=== PATIENT | female | born 1985 | race Caucasian/White ===

== ENCOUNTER 2022-05-29 22:04 | Emergency (ER) | payer OTHER, SELFPAY ==
[2022-05-29 22:04] VITALS: BP 146/73; PULSE 88; RESP 16; TEMP 36.8; O2SAT 98; BMI 24.1
[2022-05-29 22:35] VITALS: O2SAT 97
--- NOTE | 2022-05-29 22:35 | EKG12_ITS ---
Test Reason : CP Blood Pressure : / mmHG Vent. Rate : 083 BPM Atrial Rate : 083 BPM P-R Int : 170 ms QRS Dur : 094 ms QT Int : 382 ms P-R-T Axes : 062 074 042 degrees QTc Int : 448 ms Normal sinus rhythm Normal ECG Confirmed by HELADIO BARROW, KATHERINE ([id number]), restaurant expeditor GLORIA DODGE ([id number]) on 05/31/2022 9:33:10 AM Referred By: PL Confirmed By:KATHERINE LEIJA MD
--- NOTE | 2022-05-29 22:50 | RAD_ITS ---
STUDY: X-RAY CHEST REASON FOR EXAM: Female, 36 years old. chest pain TECHNIQUE: AP portable. 10:49 PM. COMPARISON: None. FINDINGS: LUNGS: No consolidation. No pneumothorax. MEDIASTINUM: Unremarkable. CARDIAC SILHOUETTE: Not enlarged. BONES AND SOFT TISSUES: No acute abnormalities. RAD/Chest 1 View (Portable) IMPRESSION: No evidence of active intrathoracic disease. Electronically Signed: iLma Cooley MD at 23:06 EDT ,
[2022-05-29 22:55] LABS: Absolute Neutrophil Count 5.6 X10^3/uL (2.0-7.7); Basophil# 0.03 X10^3/uL; Basophil% 0.3 % (0-1); Eosinophil# 0.09 X10^3/uL; Hematocrit 40.6 % (37-47); Hemoglobin 13.6 g/dL (12.0-15.0); Lymphocyte % 29.3 % (19-41); Mean Corp Hgb Conc 33.5 g/dL (32-36); Mean Corpuscular Volume 89.4 fL (81-99); Mean Platelet Vol. 9.1 fl (6.2-12.0); Monocyte# 0.53 X10^3/uL; NRBC Flagged by Analyzer 0 % (0-5); Neutrophil # 5.61 X10^3/uL (2.7-7.7); Neutrophil % 63.3 % (47-70); Platelet Count 311 K/mm3 (150-450); RBC Distribution Width CV 12.1 % (11.6-14.6); RBC Distribution Width SD 39.6 fl (35.1-43.9); Red Blood Count 4.54 M/mm3 (4.2-5.4); White Blood Count 8.9 K/mm3 (4.4-11.0)
[2022-05-29 23:00] VITALS: BP 114/72; PULSE 76; RESP 18; O2SAT 97
[2022-05-29 23:06] LABS: D-Dimer Quantitative (DVT/PE) 0.39 FEU/ug/m (0.27-0.49)
[2022-05-29 23:33] LABS: Anion Gap 7 (5-15); BUN 14 mg/dL (7-18); BUN/Creat Ratio 15.7 RATIO (10-20); Calcium,Total 8.7 mg/dL (8.5-10.1); Chloride 107 mmol/L (98-107); Creatinine, Serum 0.89 mg/dL (0.55-1.02); EST Glomerular Filtration Rate 75 mL/min (>60); Est Glom Filt Rate - Afr Amer 91 mL/min (>60); Estimated Creatinine Clearance 77.12 ml/min; Glucose 115 mg/dL (74-106); Potassium 3.2 mmol/L (3.5-5.1); Sodium Level 143 mmol/L (136-145); Troponin-I HS < 3 pg/mL (3.0-54.0)
--- NOTE | 2022-05-29 23:43 | ED.VIS.CHEST ---
HPI History of Present Illness Chief Complaint: Chest Pain Informant: patient Onset/Context/Timing Onset: Days Activity at onset: gradual Timing: Intermittent Quality: Positive for Aching Location: Right Parasternal and Left Parasternal Current Severity: Mild Maximum Severity: Mild Worsened By: Nothing Relieved By: Nothing Associated Symptoms: Positive for Cough; Negative for Nausea, Vomiting, Diaphoresis, Dyspnea, Fever, Lightheadedness, Acid Reflux or Palpitations Narrative Narrative: 36-year-old female no seen past medical history. Recently had COVID about a week and a half ago. She has had intermittent parasternal chest pressure and tightness since this past Tuesday. About a week ago. Not associated with exertion. No dyspnea. No hemoptysis. Denies any fever or chills now. Has never had a DVT or PE. No recent travel, surgery or immobilization. No leg pain or swelling. No exertional chest pain or dyspnea. Prior Similar Symptoms: No Recent Illness/Hospitalization: No CVD Risk Factors: Negative for Hypertension, Diabetes, Hypercholesterolemia or Smoking PE Risk Factors: Negative for Recent Travel/Surgery, Recent Immobilization, Prior DVT or PE, Cancer or OCP + Smoking + >/=35 TAD Risk Factors: Negative for Marfan's Syndrome [facility] Medical History Anxiety COVID Home Medications vits,calcium no.78-iron fumarate-folic acid 29 mg-1 mg tablet (Prenatabs FA) 1 tab PO DAILY 09/07/17 [History Last Taken 09/06/17 20:00 1 tab] acetaminophen 500 mg tablet 1,000 mg PO Q8H PRN PRN MILD PAIN (1-10)/Temp>99.6F 09/09/17 [Rx Last Taken Unknown] sennosides 8.6 mg-docusate sodium 50 mg tablet (Stool Softener-Stimulant Laxative) 1 - 2 tab PO DAILY PRN PRN Constipation 09/09/17 [Rx Last Taken Unknown] Allergy/AdvReac Type Severity Reaction Status Date / Time No Known Allergies Allergy Verified 05/29/22 22:07 Social History Smoking Status: Former smoker ROS ROS ED ROS Narrative Cough. Atypical nonexertional chest pain. Review of Systems ROS Unobtainable: Denies due to encephalopathy Constitutional Constitutional ED: Denies chills or fever(s) Eyes Eyes: Reports none ENT ENT ED: Denies ear pain, rhinorrhea or sore throat Cardiovascular Cardiovascular: Reports as per HPI and chest pain; Denies palpitations or racing heartbeat Respiratory/Chest Respiratory/Chest: Reports cough; Denies dyspnea Gastrointestinal Gastrointestinal: Denies abdominal pain Genitourinary Genitourinary ED: Denies dysuria or hematuria Musculoskeletal Musculoskeletal: Denies arthralgias Integumentary Denies abscess Neurologic Neurologic: Denies headache(s) Psychiatric Psychiatric: Reports anxiety Endocrine Endocrinology: Denies cold intolerance Hematologic/Lymphatic Hematologic/Lymphatic: Denies easy bleeding Allergic/Immunologic Allergic/Immunologic ED: Denies mouth swelling or tongue swelling EXAM Physical Exam Narrative Exam Narrative: Well-appearing 36-year-old female. Vital signs are stable afebrile. Pulse ox 90% on room air no hypoxia. H EENT exam unremarkable. Neck nontender no lymphadenopathy. Lungs clear to auscultation bilaterally. Heart regular rate and rhythm rate about 85 no murmur. Chest wall nontender. Abdomen soft nontender. Moving all 4 extremities. Neurovascularly intact. Equal symmetrical radial pulses. Calves are nontender without edema or cords. Normal motor strength. Neurologic exam normal. Const Vital Signs: 05/29/22 22:04 05/29/22 23:00 05/29/22 22:35 Temperature 98.2 F Temperature Source Temporal Pulse Rate 88 76 Respiratory Rate 16 18 Blood Pressure 146/73 H 114/72 Blood Pressure Mean 97 86 Pulse Ox 98 97 97 Oxygen Delivery Method Room Air Room Air Room Air Positive well nourished, well developed and obese; Negative for cachectic, contractures or unkempt General Appearance ED: well developed and NAD; Negative for unkempt, cachectic, contractures or pallor Nutritional Appearance: obese; Negative for cachectic HEENT Reports moist mucous membranes normocephalic and atraumatic; Negative for trauma or tenderness Eyes PERRL and EOMs intact bilaterally General Eye ED: Negative for pale conjunctiva or scleral icterus Neck no lymphadenopathy, supple and no JVD General: Negative for tenderness Chest Wall inspection of chest normal and palpation of chest normal Chest: Negative for tenderness Resp normal respiratory effort and clear to auscultation bilaterally Effort and Inspection: Negative for respiratory distress Auscultation: Negative for rales, rhonchi or wheezes Cardio regular rate, regular rhythm, S1 normal heart sound, S2 normal heart sound and no murmurs Rate: Negative for bradycardia or tachycardic Rhythm: Negative for abnormal rhythm Peripheral Pulses: pulses 2+ throughout GI normal to inspection, nondistended, normoactive bowel sounds, soft to palpation, non-tender, non-distended and no masses Auscultation: Negative for hyperactive bowel sounds Back/Spine no CVA tenderness and no thoracic nor lumbar tenderness General Back: Negative for CVA tenderness Cervical Spine: Negative for cervical spine tenderness Extremity normal to inspection General Extremety ED: Negative for edema or pulses abnormal General Extremity: Negative for edema or pulses abnormal Neuro oriented x3 and CN's II-XII intact bilaterally Sensorium / Orientation: awake, alert, oriented to person, oriented to place and oriented to time; Negative for confused, lethargic or stuporous Motor Exam: strength 5/5 throughout Psych mental status grossly normal Appearance: Negative for unkempt Attitude: No agitated Mood & Affect: Negative for depressed, anxious or tearful Skin no rashes or lesions noted and no wounds General Skin Exam: Negative for jaundice or pallor Rashes: No rashes noted Trauma: Negative for abrasion or laceration Heart Score History: Slightly/Non-Suspicious ECG: Normal Age: </= 45 years Risk Factors: No Risk Factors Troponin: </= Normal Limit Score: 0 MDM MDM MDM Narrative Medical decision making narrative: 36-year-old with atypical nonreproducible chest pain. Recent COVID. Clinically does not sound like a DVT or PE. She undergo cardiac work-up with a D-dimer. Repeat exam the patient is doing well at 11:49 PM patient doing well. We discussed other differential diagnoses such as reflux or anxiety. She will be discharged home. Motrin for pain. She has Ativan for anxiety. Follow-up with her doctor if not improving. Lab Data Attestation: I reviewed the patient's lab results. Lab results narrative: CBC normal. White count 8.9. H&H of 13.6 and 40. Electrolytes show potassium 3.2. Gap is 7. Normal BUN and creatinine. Normal troponin less than 3. She does not need a second troponin she has had intermittent discomfort for a week. Her D-dimer is 0.39 which is also normal. Chest x-ray is normal. Labs: Laboratory Results - last 24 hr 05/29/22 05/29/22 05/29/22 22:45 22:45 22:45 WBC 8.9 RBC 4.54 Hgb 13.6 Hct 40.6 MCV 89.4 MCH 30.0 MCHC 33.5 RDW Std Deviation 39.6 RDW Coeff of Joie 12.1 Plt Count 311 MPV 9.1 Immature Gran % (Auto) 0.100 Neut % (Auto) 63.3 Lymph % (Auto) 29.3 [place] % (Auto) 6.0 Eos % (Auto) 1.0 Baso % (Auto) 0.3 Absolute Neuts (auto) 5.6 Absolute Lymphs (auto) 2.60 Nucleated RBC % 0 D-Dimer Quant (PE/DVT) 0.39 Sodium 143 Potassium 3.2 L Chloride 107 Carbon Dioxide 29.0 Anion Gap 7 BUN 14 Creatinine 0.89 Estim Creat Clear Calc 77.12 Est GFR (MDRD) Af Amer 91 Est GFR (MDRD) Non-Af 75 BUN/Creatinine Ratio 15.7 Glucose 115 H Calcium 8.7 Troponin I High Sens < 3 L Radiography Chest X-Ray - ED: 1 View, Read by ED Physician, Read by Radiologist, Heart, Lungs, Mediastinum, Bony Structures and No Acute Disease Diagnostic Testing: Clinical Impression(s) from Imaging Studies Chest X-Ray 05/29/22 22:50 IMPRESSION: No evidence of active intrathoracic disease. Electronically Signed: Lima Cooley MD at 23:06 EDT Reading Location ID and State: [address] [place] [address] Tel , Service support , Chest x-ray, portable, single view interpreted by myself and radiologist shows no acute abnormality. Normal cardiac silhouette. No infiltrates. Normal mediastinum. Rhythm Strip Rhythm Strip: Sinus Rhythm Rate: 83 Ectopy: None EKG Initial EKG: Attestation: I personally reviewed and interpreted this EKG as follows: Interpretation: Sinus Rhythm and No Acute Injury Pattern Comments: Normal sinus rhythm rate of 83 no acute signs of VA or ischemia. No S1 Q3 T3. Prior EKG tracings: not available for review Discharge Plan Triage Chief Complaint: Chest Pain ED Provider: Leonid Barboza Dx/Rx/DC Orders Clinical Impression: Chest pain, Hx of anxiety disorder, History of COVID-19 Instructions: ED Chest Pain, Noncardiac Prescriptions: No Action vit,[id number] [Prenatabs FA] 1 TABLET tablet 1 tab PO DAILY sennosides-docusate sodium [Stool Softener-Stimulant Laxat] 1 TABLET tablet 1 - 2 tab PO DAILY PRN PRN (Reason: Constipation ) 0RF acetaminophen 500 MG tablet 1,000 mg PO Q8H PRN PRN (Reason: MILD PAIN (-10/29)/Temp>99.6F) 0RF Primary Care Provider: Stephan Hill Referrals: Stephan Hill, [Primary Care Provider] - 1 Week if not improving Activity Restrictions/Additional Instructions: Motrin or Advil for chest pain. This should improve if its inflammation. Tums, Pepcid or Protonix if not improving because this could be secondary to reflux. Follow-up with your doctor if not improving. All your labs, chest x-ray and EKG were normal tonight. Disposition Disposition: Home, Self Care
[2022-05-30] VITALS: BP 113/79; PULSE 74; RESP 17; O2SAT 98
== END 2022-05-30 00:06 | disposition home or self-care (01) ==
PROVIDERS: Emergency Provider Emergency Medicine; PCP Student in an Organized Health Care Education/Training Program; Visit Provider Emergency Medicine
DX: R07.9 Chest pain, unspecified (principal); F41.9 Anxiety disorder, unspecified; E66.9 Obesity, unspecified; Z87.891 Personal history of nicotine dependence; Z86.16 Personal history of COVID-19; Z79.899 Other long term (current) drug therapy
CPT/HCPCS: 71045; 80048; 84484; 85025; 85379; 93005; 99284; A4216

== ENCOUNTER 2022-08-10 08:55 | Day surgery (SDC) | payer OTHER, SELFPAY ==
[2022-08-10] VITALS (9 sets, daily range): BP systolic 76–94; BP diastolic 45–62; PULSE 57–79; RESP 14–16; TEMP 36.3–36.5; O2SAT 94–100; BMI 25.3
[2022-08-10 09:29] LABS: Internal QC Validated? YES +Cl - CLEAR BKGD; Pregnancy, Urine Negative Negative
[2022-08-10] MEDS: Lactated Ringers 1,000 ML 15 ML IV (09:42)
--- NOTE | 2022-08-10 10:00 | EGD_PTH ---
PATIENT: RENEA POLLOCK LOC: EN U#:[id number] AGE/SX: 36/F ROOM: RE08/10/[address]: Dr. Chivo Gudino MD : 1985 BED: DIS: 08/10/2022 SPEC #: [id number] RECD: 08/10/22 11:12 STATUS: ANDREA RESagrario #: [id number] GIA: 08/10/22 10:[address]: Chivo Gudino DEPT: SURGICAL PATHOLOGY RECD BY: Reyna Reina ENTERED: 08/10/22 13:01 SP TYPE: EGD BIOPSY OT DR: Dr. Stephan Hill DO Tissues: A - Gastric mucous membrane B - Esophagus, NOS Procedures: Special Stain Group II Surgery Specimen Level IV Alcian Blue/PAS (control) HEADER OPERATION: EGD with biopsy (MAC) PRE-OP DIAGNOSIS: Epigastric pain TISSUE SUBMITTED: A ? Antrum biopsy for H. pylori and path, B ? Biopsy gastroesophageal junction MICROSCOPIC DIAGNOSIS A. Gastric antrum, biopsy: Chronic gastritis. See comment. B. Gastroesophageal junction, biopsy: Gastroesophageal junctional mucosa with chronic inflammation. No evidence of goblet cell metaplasia. See comment. AM:kristel 08/11/2022 COMMENT A. The results of immunohistochemistry for Helicobacter pylori will be reported separately ([id number]). B. Alcian blue/PAS stain with matched control supports the above diagnosis. MICROSCOPIC DESCRIPTION Slides are reviewed. GROSS DESCRIPTION A - Received in fixative is one container labeled with the patient's name and designated antrum biopsy. The specimen consists of multiple irregular fragments of light dunham soft tissue that in aggregate measure 0.8 x 0.3 x 0.1 cm. The specimen is totally submitted in one cassette. B - Received in fixative is one container labeled with the patient's name and designated GE junction biopsy. The specimen consists of multiple irregular fragments of light dnuham soft tissue that in aggregate measure 0.6 x 0.3 x 0.1 cm. The specimen is totally submitted in one cassette. / SJ:kristel 08/10/2022 TC:3 CPT: 83223 x2
--- NOTE | 2022-08-10 10:00 | IMM_PTH ---
PATIENT: RENEA POLLOCK LOC: EN U#:[id number] AGE/SX: 36/F ROOM: RE08/10/[address]: Dr. Chivo Gudino MD : 1985 BED: DIS: 08/10/2022 SPEC #: [id number] RECD: 08/10/22 13:58 STATUS: [facility] REQ #: [id number] GIA: 08/10/22 10:[address]: Chivo Gudino DEPT: IMMUNOHISTOCHEMISTRY RECD BY: Sharee Hurtado ENTERED: 08/10/22 13:58 SP TYPE: IMMUNO OTHR DR: Dr. Stephan Hill, DO Tissues: A - Stomach, NOS Procedures: H Pylori (initial) PHYSICIAN & INSTITUTION [place] [id number] SPECIMEN INFORMATION: Tissue Source: A ? Antrum biopsy Clinical Info: Epigastric pain Specimen Number: [id number] CPT code: 52184 METHODOLOGY: Deparaffinized sections of prefer/formalin-fixed tissue or PAP/DQ stained slides are incubated with monoclonal/polyclonal antibodies/oligonucleotide probes. Localization is made via biotin free immunoperoxidase method. Appropriate controls are performed and reacted as expected. Results on target cell population are indicated in the following table: RESULTS: ANTIBODY / CLONE RESULT Block A H Pylori (polyclonal) negative These tests were developed and their performance characteristics determined by [facility]. They may not have been cleared or approved by the U.S. Food and Drug Administration. The FDA has determined that such clearance or approval is not necessary. The above immunohistochemical/dualISH markers are ordered and reviewed by the Pathologist. INTERPRETATION: A. Antrum, biopsy: Negative for Helicobacter pylori organisms. AM:kristel 08/11/2022
--- NOTE | 2022-08-10 10:01 | PCM.HP.BLA ---
History and Physical Date of Admission: 08/10/22 Intake Vital Signs ? 05/29/2222:04 07/26/2214:08 Height 5 ft 5 in 5 ft 5 in Weight: ? 152 lb 2 oz BMI ? 25.3 BP ? 106/71 Blood Pressure Location ? Rt brachial Position ? Sitting Respiration ? 20 H Pulse ? 77 Pulse Source ? NIBP Temp ? 97.8 F Temp Source ? Temporal Pulse Oximetry (%) ? 96 Oxygen Delivery Method ? room air Intake Visit Reasons:?ABDOMINAL PAIN Chief Complaint: epigastric pain Wall Cleaner Required: No Is patient in pain?: No Allergies No Known Allergies Allergy (Verified 07/26/22 14:09) Medications vits,calcium no.78-iron fumarate-folic acid 29 mg-1 mg tablet (Prenatabs FA) 1 tab PO DAILY 09/07/17 [History Confirmed 07/26/22] acetaminophen 500 mg tablet 1,000 mg PO Q8H PRN PRN MILD PAIN (1-310)/Temp>99.6F 09/09/17 [Rx Confirmed 07/26/22] sennosides 8.6 mg-docusate sodium 50 mg tablet (Stool Softener-Stimulant Laxative) 1 - 2 tab PO DAILY PRN PRN Constipation 09/09/17 [Rx Confirmed 07/26/22] benzonatate 100 mg capsule cap PO 07/26/22 [History Confirmed 07/26/22] cholecalciferol (vitamin D3) 1,250 mcg (50,000 unit) capsule ea PO 07/26/22 [History Confirmed 07/26/22] lansoprazole 30 mg capsule,delayed release cap PO 07/26/22 [History Confirmed 07/26/22] sucralfate 1 gram tablet ea PO 07/26/22 [History Confirmed 07/26/22] Is last menstrual period known: No Post menopausal: No Patient : No PFSH Medical History?(Updated 07/26/22 @ 15:[address] Chivo Gudino MD) Anxiety COVID manual placenta removal UMBILICAL CORD AVULSION Surgical History?(Updated 07/26/22 @ 14:07 by Nina Ayala) History of use of contraceptive intrauterine device (IUD) Family History?(Updated 07/26/22 @ 14:08 by Nina Ayala) Mother Diabetes HypertensionFather Diabetes HypertensionGrandmother Heart disease Social History? Smoking Status:? Former smoker HPI HPI HPI: Patient is a 36-year-old female who is here with epigastric and chest pain.? Patient reports she has been on a PPI and Carafate for 6 weeks with minimal improvement.? The patient reports her pain is mostly in her chest.? It does not make much of a difference the time of day and it does not change with eating.? She says it is in her chest and it radiates outward laterally on both sides.? She also says it is worse when she pushes in on her sternum. ROS General General: Yes fatigue; No weight change, appetite, colon cancer, breast cancer or weakness HEENT HEENT: Yes swollen glands; No difficulty swallowing, eye injury, eye surgery or hoarseness Endo Endocrine: No thyroid disease, diabetes mellitus, thyroid cancer, Hair loss, heat intolerance or cold intolerance Breast Breast: No left breast lump, right breast lump, nipple discharge, breast pain, abnormal mammogram, abnormal US or breast enlargement Musc Musculoskeletal: No back problems, arthritis, rheumatoid arthritis, gout or joint pain Cardio Cardiovascular: No murmur, pacemaker, heart disease, atrial fibrillation, high blood pressure, heart attack, heart stent, palpitations, shortness of breat with exertion or chest pain Psych Psychiatric: Yes anxiety; No depression or hearing voices Resp Respiratory: No shortness of breath, No sleep apnea, No cough, No COPD, No asthma, No emphysema and No wheezing Gastro Gastrointestinal: Yes abdominal pain, No nausea or vomiting, Yes diarrhea, No constipation, No blood in stool, Yes acid reflux, No hemorrhoids, No ulcers, No gallbladder problem and No black,tarry stools [place] Hematologic: No blood thinners, No blood disorders, No bleeding, No anemia and No blood clots Neuro Neurologic: No weakness Exam Const General: cooperative Orientation: alert and oriented x3 [facility] Head: normal to inspection Neck Neck: normal visual inspection and full ROM Chest Chest palpation & inspection: normal inspection of the chest Resp Effort & Inspection: normal respiratory effort Auscultation: clear to auscultation bilaterally Cardio Rate: regular rate Rhythm: regular rhythm GI Inspection: non-distended Palpation: soft and nontender Skin General: no rashes or lesions noted Neuro General: patient alert and patient oriented x3 Extrem General: full ROM Psych Appearance: grossly normal Mental Status: mental status grossly normal Assessment and Plan Assessment and Plan (1) Epigastric pain: ?Status:?Acute ?Plan: Patient is having epigastric and chest pain which I believe fits more with costochondritis but she was sent here for EGD.? I discussed that if this was typical gastritis or gastric ulcer should have improved after 6 weeks of PPI and Carafate.? I also explained that the fact that it hurts to push on the sternum means it is more likely costochondritis.? I will perform an EGD to ensure that there is no ulceration or irritation of the stomach but if that is normal I would pursue treatment of costochondritis. I explained endoscopy in detail to the patient.? I explained the risks including but not limited to stroke or heart attack with anesthesia, perforation of the GI tract, bleeding, infection.? I explained that any of these could necessitate further emergency surgery.? The patient understands and all questions were answered sufficiently.? The patient wishes to proceed with procedure. Chivo Gudino MD Pager: [facility] [address] [place] [address], [address] [place] [address] Office: I have examined the patient and the H&P has been reviewed. There are no clinical changes since date of exam.
--- NOTE | 2022-08-10 10:25 | OP.EGD_ITS ---
Patient Name: Cori Del Cid Procedure Date: 08/10/2022 10:06 AM Date of : 1985 Age: 36 Procedure: Upper GI endoscopy Indications: Epigastric abdominal pain, Heartburn Providers: Chivo Gudino MD Medicines: Monitored Anesthesia Care Patient Profile: This is a 36 year old female. Refer to note in patient chart for documentation of history and physical. Complications: No immediate complications. Estimated blood loss: Minimal. Procedure: Pre-Anesthesia Assessment: - Prior to the procedure, a History and Physical was performed, and patient medications and allergies were reviewed. The patient's tolerance of previous anesthesia was also reviewed. The risks and benefits of the procedure and the sedation options and risks were discussed with the patient. All questions were answered, and informed consent was obtained. Prior Anticoagulants: The patient has taken no previous anticoagulant or antiplatelet agents. After reviewing the risks and benefits, the patient was deemed in satisfactory condition to undergo the procedure. After obtaining informed consent, the endoscope was passed under direct vision. Throughout the procedure, the patient's blood pressure, pulse, and oxygen saturations were monitored continuously. The gastroscope was introduced through the mouth, and advanced to the fourth part of duodenum. The upper GI endoscopy was accomplished without difficulty. The patient tolerated the procedure well. Scope In: 10:17:16 AM Scope Out: 10:20:46 AM Total Procedure Duration Time 0 hours 3 minutes 30 seconds Findings: There were esophageal mucosal changes suspicious for short-segment Garcia's esophagus present in the lower third of the esophagus. Mucosa was biopsied with a cold forceps for histology in a targeted manner at the gastroesophageal junction. One specimen bottle was sent to pathology. The stomach was normal. The examined duodenum was normal. Biopsies were taken with a cold forceps in the gastric antrum for Helicobacter pylori testing. 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 Biopsied. - Normal stomach. - Normal examined duodenum. - Biopsies were taken with a cold forceps for Helicobacter pylori testing. Recommendation: - Discharge patient to home. - Resume previous diet. - Continue present medications. - Await pathology results. - Return to my office in 2 weeks. Procedure Code(s): --- Professional --- 51302, Esophagogastroduodenoscopy, flexible, transoral; with biopsy, single or multiple Diagnosis Code(s): --- Professional --- K22.8, Other specified diseases of esophagus R10.13, Epigastric pain R12, Heartburn CPT copyright 2017 [employer]. All rights reserved. The codes documented in this report are preliminary and upon director enterprise data architecture review may be revised to meet current compliance requirements. Chivo Gudino MD 08/10/2022 10:24:53 AM This report has been signed electronically. Number of Addenda: 0 Note Initiated On: 08/10/2022 10:06 AM
--- NOTE | 2022-08-10 10:26 | OP.CCLET_ITS ---
08/10/2022 Stephan Hill [address] [place] [address] Re : Upper GI endoscopy procedure for Cori Maria Eugenia Dear Dr. Hill This procedure was performed on Wednesday, August 10, 2022. My impressions and recommendations are as follows: Impressions : - Esophageal mucosal changes suspicious for short-segment Garcia's esophagus. Biopsied. - Normal stomach. - Normal examined duodenum. - Biopsies were taken with a cold forceps for Helicobacter pylori testing. Recommendations : - Discharge patient to home. - Resume previous diet. - Continue present medications. - Await pathology results. - Return to my office in 2 weeks. My findings are described in the full procedure note, which is enclosed. If I can be of further assistance, please feel free to contact me at Doctor phone number(s): , Work: . Sincerely, Chivo Gudino MD 08/10/2022 10:24:53 AM This report has been signed electronically.
== END 2022-08-10 11:50 | disposition home or self-care (01) ==
LOC: EN 08:56 → AC 08:57
PROVIDERS: Anesthesiology; PCP Student in an Organized Health Care Education/Training Program; Referring Provider Student in an Organized Health Care Education/Training Program; Visit Provider Surgery
PROC: 0DJ08ZZ Inspection of Upper Intestinal Tract, Via Natural or Artificial Opening Endoscopic (ICD-10-PCS; CPT 43235; principal; 2022-08-10 09:55)
DX: K29.50 Unspecified chronic gastritis without bleeding (principal); K20.90 Esophagitis, unspecified without bleeding; K22.89 Other specified disease of esophagus; Z86.16 Personal history of COVID-19; Z87.891 Personal history of nicotine dependence
CPT/HCPCS: 43239; 81025; 88305; 88313; 88342; J7120; J2405

== ENCOUNTER 2023-03-14 10:16 | Emergency (ER) | payer OTHER, SELFPAY ==
[2023-03-14 10:17] VITALS: BP 118/91; PULSE 93; RESP 18; TEMP 36.3; O2SAT 100; BMI 26.7
[2023-03-14 11:38] LABS: Absolute Lymphocyte Count 1.74 X10^3/uL (0.83-4.51); Absolute Neutrophil Count 4.4 X10^3/uL (2.0-7.7); Basophil# 0.02 X10^3/uL; Basophil% 0.3 % (0-1); Eosinophil# 0.07 X10^3/uL; Hemoglobin 13.9 g/dL (12.0-15.0); Lymphocyte # 1.74 X10^3/ul (0.83-4.51); Lymphocyte % 25.9 % (19-41); Mean Corp Hgb Conc 33.1 g/dL (32-36); Mean Corpuscular Hgb 29.6 pg (27.0-32.0); Mean Corpuscular Volume 89.4 fL (81-99); Mean Platelet Vol. 8.9 fl (6.2-12.0); Monocyte# 0.47 X10^3/uL; NRBC Flagged by Analyzer 0 % (0-5); Neutrophil # 4.39 X10^3/uL (2.7-7.7); Neutrophil % 65.5 % (47-70); Platelet Count 292 K/mm3 (150-450); RBC Distribution Width CV 12.3 % (11.6-14.6); RBC Distribution Width SD 40.6 fl (35.1-43.9); White Blood Count 6.7 K/mm3 (4.4-11.0)
[2023-03-14 11:52] LABS: ALB/GLOB Ratio 1.1 RATIO (0.9-2.4); AST(SGOT) 15 U/L (15-37); Alanine Aminotransfer ALT/SGPT 19 U/L (13-56); Albumin, Serum 3.7 g/dL (3.2-5.0); Alkaline Phosphatase 48 U/L (45-117); Anion Gap 2 (5-15); BUN 11 mg/dL (7-18); BUN/Creat Ratio 13.8 RATIO (10-20); Calcium,Total 8.7 mg/dL (8.5-10.1); Chloride 107 mmol/L (98-107); EST Glomerular Filtration Rate 85 mL/min (>60); Est Glom Filt Rate - Afr Amer 103 mL/min (>60); Estimated Creatinine Clearance 84.96 ml/min; Globulin 3.4 g/dL (2.2-4.2); Glucose 99 mg/dL (74-106); Lipase 58 U/L (13-75); Potassium 3.9 mmol/L (3.5-5.1); Protein, Total 7.1 g/dL (6.4-8.2); Sodium Level 138 mmol/L (136-145)
--- NOTE | 2023-03-14 11:55 | ED.VIS.GI ---
HPI HPI - GI History of Present Illness Chief Complaint: Abd Pain Informant: patient Narrative Narrative: Patient is a 37-year-old female with history of anxiety, noncardiac chest pain and increased acid in her stomach (previously was on antacids but stopped taking because she states they were not helping) which was diagnosed on EGD presenting with concern of black stool. Patient states a little over week ago she had which she describes as a 24-hour GI bug. She had nausea, vomiting diarrhea as well as felt sore and weak. She states by Tuesday (8 days ago) she started to feel better. She notes that in 3 days ago she started to feel that her stomach was upset and have some nausea. She started taking a chewable Pepto-Bismol as well as Tylenol for headaches. 2 days ago she continued have upset stomach and decreased appetite. She started to notice darker stools and last night had what appeared to be black stools as well as a small blood clot in the toilet. She thought maybe she was starting her period and then did go on to start her period later in the night so she is not sure if the blood clot came from her vagina or her rectum. Patient notes that she had another bowel movement late last night that was dark as well and looser. She denies any pain with a bowel movement. She also states that she started to feel dizzy and lightheaded but is not sure if her anxiety is kicking in. She does have some cramping associated with her menstrual cycle but denies any other discomfort. No other complaints at this time. [facility] Medical History Abdominal pain Alcohol use Anxiety Blackout Chest pain COVID Depression Former smoker Gastric reflux History of COVID-19 manual placenta removal Short cord complicating labor and delivery, delivered UMBILICAL CORD AVULSION Home Medications cholecalciferol (vitamin D3) 1,250 mcg (50,000 unit) capsule 1 ea PO .QOWEEK 07/26/22 [History Last Taken Unknown] amitriptyline 25 mg tablet 25 mg PO QHS #30 tabs 02/04/23 [Rx Last Taken Unknown] lansoprazole 30 mg capsule,delayed release 30 mg PO DAILY 30 days #30 caps 03/14/23 [Rx Last Taken Unknown] ondansetron 4 mg disintegrating tablet 4 mg PO Q8H PRN PRN Nausea #10 tabs 03/14/23 [Rx Last Taken Unknown] Allergy/AdvReac Type Severity Reaction Status Date / Time No Known Allergies Allergy Verified 02/04/23 09:55 Family History Mother Diabetes Hypertension Father Diabetes Hypertension Grandmother Heart disease Surgical History History of use of contraceptive intrauterine device (IUD) Social History Smoking Status: Former smoker ROS ROS ED Constitutional Constitutional ED: Denies chills or fever(s) Cardiovascular Cardiovascular: Denies chest pain or palpitations Respiratory/Chest Respiratory/Chest: Denies cough Gastrointestinal Gastrointestinal: Reports diarrhea, melena and nausea; Denies abdominal pain or vomiting Genitourinary Genitourinary ED: Reports LMP (females 10-50) Details: Comment: (03/13/23); Denies dysuria or hematuria Musculoskeletal Musculoskeletal: Denies arthralgias or myalgias Integumentary Denies rash Neurologic Neurologic: Reports weakness; Denies headache(s) Psychiatric Psychiatric: Reports anxiety Hematologic/Lymphatic Hematologic/Lymphatic: Denies easy bleeding or easy bruising EXAM Physical Exam Const Vital Signs: 03/14/23 10:17 03/14/23 12:13 Temperature 97.4 F L Temperature Source Temporal Pulse Rate 93 Pulse Rate [Lying] 83 Pulse Rate [Sitting (for 1 minute prior to obtaining)] 75 Pulse Rate [Standing (for 1 minute prior to obtaining)] 78 Respiratory Rate 18 Blood Pressure 118/91 H Blood Pressure [Lying] 111/76 Blood Pressure [Sitting (for 1 minute prior to obtaining)] 115/76 Blood Pressure [Standing (for 1 minute prior to obtaining)] 120/83 H Blood Pressure Mean 100 Blood Pressure Mean [Lying] 87 Blood Pressure Mean [Sitting (for 1 minute prior to obtaining)] 89 Blood Pressure Mean [Standing (for 1 minute prior to obtaining)] 95 Pulse Ox 100 Oxygen Delivery Method Room Air Positive well nourished and well developed General Appearance ED: well developed and NAD; Negative for pallor HEENT Reports moist mucous membranes normocephalic and atraumatic Eyes PERRL and EOMs intact bilaterally Neck supple and no JVD Resp normal respiratory effort and clear to auscultation bilaterally Cardio regular rate, regular rhythm and no murmurs GI non-tender, non-distended and no masses GI Narrative: Green stool on rectal exam, no bleeding. No hemorrhoids or fissures appreciated. 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 She is also some upset stomach and nausea. She appears nontoxic in no acute distress. Patient did go off of her antacid because she is not sure if it was helping but now she has had some increased issues with her stomach since. She had an EGD on 08/10/[address] Austin which is reviewed independently by myself. 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 H. pylori was negative at that time. Rectal exam is negative for occult blood and I suspect the discoloration of her stool is more associated with her Pepto-Bismol use than an active GI bleed. Her vital signs are normal and she has normal orthostatic vital signs. Addition her hemoglobin is normal. Low suspicion for acute GI bleed. She has normal BUN to creatinine ratio. Patient replaced back on an antacid and counseled to follow-up with GI. Is given referral for Dr. Cuevas. Is also given a prescription for as needed Zofran for her upset stomach. At this time patient clinically does not appear dehydrated I do not think she requires IV fluids. Given return precautions. Discharged home in stable condition. Lab Data Attestation: I reviewed the patient's lab results. Labs: Laboratory Results - last 24 hr 03/14/23 11:30 WBC 6.7 RBC 4.70 Hgb 13.9 Hct 42.0 MCV 89.4 MCH 29.6 MCHC 33.1 RDW Std Deviation 40.6 RDW Coeff of Joie 12.3 Plt Count 292 MPV 8.9 Immature Gran % (Auto) 0.300 Neut % (Auto) 65.5 Lymph % (Auto) 25.9 [place] % (Auto) 7.0 Eos % (Auto) 1.0 Baso % (Auto) 0.3 Absolute Neuts (auto) 4.4 Absolute Lymphs (auto) 1.74 Nucleated RBC % 0 Sodium 138 Potassium 3.9 Chloride 107 Carbon Dioxide 29.0 Anion Gap 2 L BUN 11 Creatinine 0.80 Estim Creat Clear Calc 84.96 Est GFR (MDRD) Af Amer 103 Est GFR (MDRD) Non-Af 85 BUN/Creatinine Ratio 13.8 Glucose 99 Calcium 8.7 Total Bilirubin 0.50 AST 15 ALT 19 Alkaline Phosphatase 48 Total Protein 7.1 Albumin 3.7 Globulin 3.4 Albumin/Globulin Ratio 1.1 Lipase 58 Discharge Plan Triage Chief Complaint: Abd Pain Other Complaint: GI Bleed ED Provider: Coral Valentine Dx/Rx/DC Orders Clinical Impression: Dark stools, Epigastric pain Instructions: ED Epigastric Pain Uncertain Cause Prescriptions: New ondansetron 4 mg tablet,disintegrating 4 mg PO Q8H PRN PRN (Reason: Nausea) Qty: 10 0RF Continued lansoprazole 30 mg capsule,delayed release(DR/EC) 30 mg PO DAILY 30 Days Qty: 30 0RF No Action cholecalciferol (vitamin D3) 1,250 mcg (50,000 unit) capsule 1 ea PO .QOWEEK Patient Comments: TAKE 1 CAPSULE BY MOUTH ONE TIME A WEEK. amitriptyline 25 mg tablet 25 mg PO QHS Qty: 30 5RF Primary Care Provider: Stephan Hill Referrals: Stephan Hill DO [Primary Care Provider] - FriendJulito DO [Med Staff - Active Staff] - As soon as possible Activity Restrictions/Additional Instructions: Your work-up was normal today with no signs of bleeding from your GI tract through blood work and stool test. I think it safe for you to go home. Your blood work is not consistent with dehydration. I would highly recommend resuming your antacid which has been prescribed for you again. Your EGD results did show findings consistent with chronic inflammation which can lead to a condition called Garcia's esophagus. This can increase your risk of esophageal cancer and that is why is important that you take the antacids. Of note, your biopsy results did not show any findings consistent with cancer. please follow back up with GI, you been given information for Dr. Cuevas, high pressure boiler operator. Disposition Disposition: Home, Self Care
[2023-03-14 12:13] VITALS: BP 111/76; BP 115/76; BP 120/83; PULSE 75; PULSE 78; PULSE 83
== END 2023-03-14 13:32 | disposition home or self-care (01) ==
PROVIDERS: Emergency Provider Emergency Medicine; PCP Student in an Organized Health Care Education/Training Program; Visit Provider Emergency Medicine
DX: K92.2 Gastrointestinal hemorrhage, unspecified (principal); R10.13 Epigastric pain; Z87.891 Personal history of nicotine dependence
CPT/HCPCS: 80053; 82274; 83690; 85025; 99284; A4216